=== PATIENT | male | born 1965 | race Caucasian/White ===

== ENCOUNTER 2019-07-10 19:14 | Emergency (ER) | payer SELFPAY ==
[~2019-07-10] VITALS: Ht 175.3 cm; Wt 63.5 kg
== END 2019-07-11 | disposition home or self-care (01) ==
LOC: ER 19:14
DX: S53.402A Unspecified sprain of left elbow, initial encounter (principal); S00.01XA Abrasion of scalp, initial encounter; S80.811A Abrasion, right lower leg, initial encounter; F17.200 Nicotine dependence, unspecified, uncomplicated; W07.XXXA Fall from chair, initial encounter
CPT/HCPCS: 73060; 73080; 99283-25; A9270